=== PATIENT | male | born 1980 | race Caucasian/White ===

== ENCOUNTER → 2022-03-26 | Outpatient (CLI) | payer OTHER | END | disposition home or self-care (01) | LOC: RADXRMAIN 13:10 | PROVIDERS: ATTEND Family Medicine | DX: Z53.9 Procedure and treatment not carried out, unspecified reason (principal) ==

== ENCOUNTER → 2022-04-12 | Outpatient (CLI) | payer OTHER ==
--- NOTE | 2022-04-12 11:37 | XR ---
Lumbar spine HISTORY: Low back pain 3 views of the lumbar spine Retained contrast material obscures detail. Lumbar vertebral bodies show preserved height and bone mi neralization. Minimal retrolisthesis grade 1 L4-5, there is some associated loss of disc height. Ques tion some mild posterior wedging of L5. Lucency present through the posterior elements at L5 consiste nt with spondylolysis. IMPRESSION: Exam is partially limited. Suspect spondylolysis at L5, some posterior wedging and degene rative disc disease, CT or MRI could be performed for better evaluation
--- NOTE | 2022-04-12 11:49 | XR ---
EXAMINATION TYPE: XR chest 2V DATE OF EXAM: 04/12/2022 COMPARISON: NONE HISTORY: COPD, asthma and shortness of breath TECHNIQUE: Frontal and lateral views of the chest are obtained on 3 images. FINDINGS: There is no focal air space opacity, pleural effusion, or pneumothorax seen. The cardiac silhouette size is within normal limits. Prominent lung volume may be indicative of underlying COPD. There is suspected overlying artifact. Thickening along the right pleural margin, old right-sided rib fractures are stable. The patient is post median sternotomy, there is thoracic spondylosis. IMPRESSION: No acute cardiopulmonary process.
== END | disposition home or self-care (01) ==
LOC: RADXRMAIN 10:22
PROVIDERS: ATTEND Family Medicine
DX: M51.36 Other intervertebral disc degeneration, lumbar region (principal); J44.9 Chronic obstructive pulmonary disease, unspecified
CPT/HCPCS: 71046; 72100